=== PATIENT | female | born 1970 | race Caucasian/White ===

== ENCOUNTER 2018-06-15 10:33 | Emergency (ER) | payer MEDICAID ==
[~2018-06-15] VITALS: Ht 182.9 cm; Wt 72.8 kg
[2018-06-15 10:43] VITALS: BP 111/74
--- NOTE | 2018-06-15 10:51 | NUR ---
SINUS PRESSURE, YELLOW AND GREEN SPUTUM, COUGH AND FELIX
== END 2018-06-15 11:34 | disposition home or self-care (01) ==
LOC: ED 11:30
DX: B34.9 Viral infection, unspecified (principal); M06.9 Rheumatoid arthritis, unspecified; Z88.0 Allergy status to penicillin; Z88.5 Allergy status to narcotic agent; Z88.7 Allergy status to serum and vaccine
CPT/HCPCS: 71046; 99283